=== PATIENT | male | born 1965 | race African-American/Black ===

== ENCOUNTER 2017-10-08 07:55 | Outpatient (CLI) | payer OTHER | END 2017-10-08 08:00 | disposition home or self-care (01) | LOC: SONOGRAMA 07:55 | DX: R10.9 Unspecified abdominal pain (principal); Z13.89 Encounter for screening for other disorder; Z13.220 Encounter for screening for lipoid disorders; Z13.1 Encounter for screening for diabetes mellitus; Z12.11 Encounter for screening for malignant neoplasm of colon ==

== ENCOUNTER 2018-05-27 07:20 | Outpatient (CLI) | payer OTHER | END 2018-05-27 08:53 | disposition home or self-care (01) | LOC: LAB 07:20 | DX: K62.89 Other specified diseases of anus and rectum (principal); Z12.5 Encounter for screening for malignant neoplasm of prostate; Z13.89 Encounter for screening for other disorder; Z13.220 Encounter for screening for lipoid disorders; Z11.3 Encounter for screening for infections with a predominantly sexual mode of transmission; K60.3 Anal fistula; K61.0 Anal abscess ==

== ENCOUNTER → 2018-06-07 | Day surgery (SDC) | payer OTHER ==
[~2018-06-07] MED LIST: COLACE100 MG PO; PERCOCET 5-3251 EACH PO; TICOR PO
== END | disposition home or self-care (01) ==
LOC: ADM 06-04 12:30 → CIR.AMB 06:05
DX: K60.3 Anal fistula (principal); K64.8 Other hemorrhoids

== ENCOUNTER 2019-02-19 08:41 | Outpatient (CLI) | payer OTHER | END 2019-02-19 08:47 | disposition home or self-care (01) | LOC: SONOGRAMA 08:41 | DX: R10.84 Generalized abdominal pain (principal) ==

== ENCOUNTER 2019-05-06 16:09 | Outpatient (CLI) | payer OTHER | END 2019-05-06 16:18 | disposition home or self-care (01) | LOC: LAB 16:09 | DX: R53.81 Other malaise (principal); R05 Cough; R50.9 Fever, unspecified ==

== ENCOUNTER 2020-02-16 12:21 | Outpatient (CLI) | payer OTHER | END 2020-02-16 12:29 | disposition home or self-care (01) | LOC: RAD 12:21 | PROVIDERS: ATTEND General Practice | DX: R05 Cough (principal); Z20.828 Contact with and (suspected) exposure to other viral communicable diseases ==

== ENCOUNTER 2022-07-07 09:54 | Outpatient (CLI) | payer OTHER | END 2022-07-07 10:14 | disposition home or self-care (01) | LOC: RAD 09:54 | PROVIDERS: ATTEND General Practice | DX: M54.50 Low back pain, unspecified (principal); R10.9 Unspecified abdominal pain; R80.9 Proteinuria, unspecified; Z13.89 Encounter for screening for other disorder ==